=== PATIENT | female | born 1935 | race Caucasian/White ===

== ENCOUNTER → 2016-09-14 | Outpatient (CLI) | payer BC ==
[~2016-09-14] MED LIST: ASPEC81 PO; CLTP PO; CYAN10005 PO; LEVO-217 PO; LISI10TA PO; MULT-506 PO; OMEG10007 PO; SIMV20TA2 PO; TRVOPS OP
[2016-09-14 13:10] LABS: BASO % 1.1 %; BASO ABS # 0.05 K/uL (0-0.2); COMPLETE YES; EOS % 5.7 %; HEMATOCRIT 37.5 % (37-47); IG% 0.2 %; LYMPH % 27.9 %; LYMPH ABS # 1.27 K/uL (1.2-3.4); MEAN CELL VOLUME 91.5 fL (80-100); MEAN CORPUSCULAR HEMOGLOBIN 30.2 pg (25-34); MEAN CORPUSCULAR HGB CONC 33.1 g/dl (32-36); MEAN PLATELET VOLUME 9.8 fL (7.4-10.4); MONO % 11.2 %; NEUT % 53.9 %; PLATELET COUNT 174 K/uL (130-400); WHITE BLOOD COUNT 4.55 K/uL (4.8-10.8)
[2016-09-14 13:39] LABS: ALT/SGPT 19 U/L (12-78); AST/SGOT 13 U/L (15-37); BLOOD UREA NITROGEN 22 mg/dl (7-18); BUN/CREATININE RATIO 23.7 (10-20); CALCIUM 8.9 mg/dl (8.5-10.1); CARBON DIOXIDE 25 mmol/L (21-32); CHLORIDE 106 mmol/L (98-107); CREATININE 0.92 mg/dl (0.60-1.20); GLUCOSE 116 mg/dl (70-99); POTASSIUM 4.1 mmol/L (3.5-5.1); SODIUM 142 mmol/L (136-145)
[2016-09-14 13:50] LABS: CHOLESTEROL 179 mg/dl (0-200); CHOLESTEROL/HDL RATIO 2.3; HDL CHOLESTEROL 77 mg/dl; LDL CHOLESTEROL CALCULATED 80 mg/dl; TRIGLYCERIDES 109 mg/dl (0-150); VERY LOW DENSITY LIPOPROT CALC 22 mg/dl
== END | disposition home or self-care (01) ==
LOC: C.LABMFLN 07:22
PROVIDERS: ATTEND Family Medicine
DX: E78.5 Hyperlipidemia, unspecified (principal); I10 Essential (primary) hypertension; E03.9 Hypothyroidism, unspecified; E53.8 Deficiency of other specified B group vitamins

== ENCOUNTER → 2016-10-27 | Outpatient (CLI) | payer BC ==
[~2016-10-27] MED LIST changes: +PERFLUTREN LIPID MICROSPHERE (DEFINITY) IV ONE
--- NOTE | 2016-10-27 10:31 | DIAGNOSTIC IMAGING REPORT ---
CHEST 2 VIEWS ROUTINE CLINICAL HISTORY: R06.09 Dyspnea on [id number] dyspnea COMPARISON STUDY: No previous studies for comparison. FINDINGS: The bones soft tissues and hemidiaphragms are normal. The cardiomediastinal silhouette is normal. The lungs are clear. The pulmonary vasculature is normal. IMPRESSION: Negative chest. Electronically signed by: Heriberto Piña M.D. 10/27/2016 10:29 AM Dictated Date/Time: 10/27/2016 10:29 AM
--- NOTE | 2016-10-27 12:21 | EXERCISE STRESS ECHO ---
*NOTICE TO RECEIVING CONSTITUTION PARTY AGENCY This information is strictly Confidential and protected under [place] law. [place] law prohibits you from making any further disclosure of this information unless further disclosure is expressly permitted by the written consent of the person to whom it pertains or is authorized by law. A general authorization for the release of medical or other information is not sufficient for this purpose. Hospital accepts no responsibility if the information is made available to any other person, INCLUDING THE PATIENT. Interpretation Summary * Name: TERENCE LEGGETT Study Date: 10/27/2016 10:47 AM BP: 151/78 mmHg * Patient Location: [facility] HR: 87 * : 1935 (M/d/yyy) Gender: Female Height: 62 in * Age: 81 yrs Ethnicity: [place] Weight: 192 lb * Ordering Physician: Tyler Saldivar * Referring Physician: Tyler Saldivar * Performed By: Janine Magallon RDCS * * Reason For Study: [place] * BSA: 1.9 m2 * History: [place] * -- Conclusions -- * There is borderline concentric left ventricular hypertrophy. * Left ventricular systolic function is normal. * Grade I diastolic dysfunction, (abnormal relaxation pattern). * Right ventricular systolic pressure is elevated at 30-40mmHg. * Extremely poor exercise tolerance * Cannot exclude lateral ischemia at the workload achieved. * Consider additional testing (ie pharmacologic) testing if further evaluation is required. Procedure Details * A contrast injection of Definity was performed to improve assessment of LV function. * Contrast was injected into an intravenous site in the left arm. * One vial of Definity ultrasound contrast was diluted in normal saline to a total volume of 10 ml. A total of '4' ml of solution was administered during imaging. * Lot # [id number] of Definity utilized for procedure. * Expiration date SEP 03. * The attending nurse who injected the contrast agent was CRYSTAL PÉREZ RN. Left Ventricular Findings with Stress * Extremely poor exercise tolerance Cannot exclude lateral ischemia at the workload achieved. Consider additional testing (ie pharmacologic) testing if further evaluation is required. Left Ventricle * The left ventricle is normal in size. * There is borderline concentric left ventricular hypertrophy. * Ejection Fraction = 60-65%. * Left ventricular systolic function is normal. * Grade I diastolic dysfunction, (abnormal relaxation pattern). * The left ventricular wall motion is normal at rest. Right Ventricle * The right ventricle is normal in size and function. Atria * The left atrial size is normal. * Right atrial size is normal. Mitral Valve * The mitral valve anatomy is normal. * Significant mitral regurgitation is absent. Tricuspid Valve * The tricuspid valve is not well visualized, but is grossly normal. * There is mild tricuspid regurgitation. * Right ventricular systolic pressure is elevated at 30-40mmHg. Aortic Valve * The aortic valve is normal in structure and function. * No hemodynamically significant valvular aortic stenosis. * There is no significant aortic regurgitation. Pericardium * There is no pericardial effusion. Stress Parameters * The stress portion of this study was personally supervised by the undersigned interpreting physician. * Rest heart rate was '87' BPM. * Rest blood pressure was '151/78' * Maximum heart rate achieved was 155 bpm. * Maximum heart rate was 111 % of maximum age-predicted heart rate. * Maximum blood pressure was '188/69' * Total exercise time was '1:03' * Maximum exercise MET level achieved was '3.30' METS * Maximum treadmill speed was '1.70' miles per hour. * Maximum treadmill elevation was '10.00'% grade. * Exercise was terminated due to 'ACHIEVING TARGET HR, FATIGUE' Left Ventricular Findings with Stress * Patient was only able to exercise for one minute using a standard Junaid protocol. Exercise stopped due to dyspnea and fatigue She did acheive target heart rate Baseline EKG was normal withotu ST segement changes Baseline echocardiogram was normal The lateral wall did not seem to augment as well as the other segments with exercise Occasional PVCs and PACS were seen No chest pain Reed treadmill score: 1 (moderate risk) MMode 2D Measurements and Calculations IVSd 1.2 cm IVSs 1.4 cm LVIDd 4.0 cm LVIDs 2.8 cm LVPWd 1.1 cm LVPWs 1.5 cm IVS/LVPW 1.1 FS 29.9 % EDV(Teich) 69.3 ml ESV(Teich) 29.3 ml EF(Teich) 57.7 % EDV(cubed) 63.2 ml ESV(cubed) 21.7 ml EF(cubed) 65.6 % % IVS thick 17.4 % % LVPW thick 33.8 % LV mass(C)d 154.5 grams LV mass(C)dI 82.2 grams/m\S\2 LV mass(C)s 134.3 grams LV mass(C)sI 71.5 grams/m\S\2 SV(Teich) 40.0 ml SI(Teich) 21.3 ml/m\S\2 SV(cubed) 41.5 ml SI(cubed) 22.1 ml/m\S\2 LVAd ap4 28.5 cm\S\2 LVLd ap4 7.9 cm EDV(MOD-sp4) 84.6 ml EDV(sp4-el) 87.5 ml LVAs ap4 16.0 cm\S\2 LVLs ap4 6.3 cm ESV(MOD-sp4) 33.7 ml ESV(sp4-el) 34.2 ml EF(MOD-sp4) 60.2 % EF(sp4-el) 60.9 % LVAd ap2 33.0 cm\S\2 LVLd ap2 8.2 cm EDV(MOD-sp2) 108.4 ml EDV(sp2-el) 112.6 ml LVAs ap2 17.5 cm\S\2 LVLs ap2 6.9 cm ESV(MOD-sp2) 37.6 ml ESV(sp2-el) 37.6 ml EF(MOD-sp2) 65.3 % EF(sp2-el) 66.6 % LVLd %diff 4.1 % EDV(MOD-bp) 99.6 ml LVLs %diff 8.1 % ESV(MOD-bp) 37.3 ml EF(MOD-bp) 62.5 % SV(MOD-sp4) 51.0 ml SI(MOD-sp4) 27.1 ml/m\S\2 SV(MOD-sp2) 70.8 ml SI(MOD-sp2) 37.7 ml/m\S\2 SV(MOD-bp) 62.2 ml SI(MOD-bp) 33.1 ml/m\S\2 SV(sp4-el) 53.2 ml SI(sp4-el) 28.3 ml/m\S\2 SV(sp2-el) 75.0 ml SI(sp2-el) 39.9 ml/m\S\2 Doppler Measurements and Calculations MV E max thu 150.4 cm/sec MV A max thu 151.9 cm/sec MV E/A 0.99 MV dec time 0.11 sec Ao V2 max 141.6 cm/sec Ao max PG 8.0 mmHg Ao max PG (full) 3.7 mmHg LV V1 max PG 4.3 mmHg LV V1 max 104.2 cm/sec TR max thu 242.5 cm/sec
== END ==
LOC: C.CPL 10:13
PROVIDERS: ATTEND Family Medicine
DX: R06.09 Other forms of dyspnea (principal)

== ENCOUNTER → 2016-12-30 | Outpatient (CLI) | payer BC ==
[~2016-12-30] MED LIST changes: +AMINOPHYLLINE 25 MG/ML 20ML VIAL IV ONE; -PERFLUTREN LIPID MICROSPHERE (DEFINITY) IV ONE; +REGADENOSON 0.4 MG/5 ML SYR ONE
--- NOTE | 2016-12-30 21:11 | MYOCARDIAL PERFUSION SCAN ---
TIME OF DICTATION: 1913. ORDERING CLINICIAN: Maegan Hung PA-C. PRIMARY CARE PHYSICIAN: Dr. Tyler Saldivar. PROCEDURE: 1. Myocardial perfusion study performed in multiple views/images. 2. Lexiscan pharmacologic stress ECG. DATE OF PROCEDURE: 12/30/2016. CONSENT: Informed written consent was obtained. INDICATIONS 1. Dyspnea with exertion. 2. Hypertension. PROCEDURAL DETAILS: For the stress portion of the study, Lexiscan 0.4 mg was intravenously administered over 10 seconds, followed by saline flush. This was followed by 31.5 mCi of technetium-99m Cardiolite injected intravenously at 1320 on 12/30/2016. Thirty minutes following the injection, imaging of the heart was performed in multiple projections. For the rest portion of the study, 10 mCi of technetium-99m Cardiolite was injected intravenously at 11:40 a.m. on the same day. One hour following the injection, imaging of the heart was performed in the same projections. LEXISCAN STRESS ECG: Baseline ECG demonstrated sinus rhythm with PVCs at 73 beats per minute. Lexiscan ECG demonstrated no significant ST changes. PACs and PVCs were noted. No arrhythmia. No significant pause. No chest pain reported. Maximum heart rate was 111 beats per minute, representing 79% maximum predicted heart rate. Resting blood pressure was 159/82 mmHg. Maximum blood pressure was 163/78 mmHg. FINDINGS: Rotating raw imaging demonstrated no significant motion artifact. There was no significant lung uptake. Heart size appeared normal. Myocardial perfusion was normal without significant fixed or reversible defect to suggest infarct or ischemia. Wall motion was normal. Ejection fraction 70%. No significant transient ischemic dilation. IMPRESSION: 1. Normal myocardial perfusion study. 2. Normal left ventricular systolic function. EF 70%. 3. Normal wall motion. 4. No arrhythmia. 5. No chest pain reported. 6. Nondiagnostic Lexiscan ECG.
--- NOTE | 2017-01-05 07:22 | CODING QUERY MEDICAL NECESSITY ---
SUPPORTING DIAGNOSIS NEEDED Dr. Mariano, A supporting diagnosis is required for the test/procedure performed on this patient in order for us to be reimbursed by the patient's insurance. Please provide a supporting diagnosis for the following test/procedure listed below next to the test name along with your signature. *If there is no additional diagnosis for this patient that would support the following test/procedure please document that below next to the test/procedure. Test(s)/Procedure(s) that require a supporting diagnosis: * ([id number]) MYOCARDIAL PERF IMG (TC) SD DIAGNOSIS: DATE OF SERVICE: 12/30/16 Provider Signature: Date: Thank you [facility] Information Management Once completed, please kindly fax back to [phone] For questions please call [phone]
== END | disposition home or self-care (01) ==
LOC: C.NUCL 11:15
PROVIDERS: ATTEND Internal Medicine Cardiovascular Disease
DX: I10 Essential (primary) hypertension (principal); R06.09 Other forms of dyspnea; E78.5 Hyperlipidemia, unspecified

== ENCOUNTER → 2017-03-21 | Outpatient (CLI) | payer BC ==
[~2017-03-21] MED LIST changes: -AMINOPHYLLINE 25 MG/ML 20ML VIAL IV ONE; -REGADENOSON 0.4 MG/5 ML SYR ONE
[2017-03-21 12:44] LABS: BASO ABS # 0.05 K/uL (0-0.2); COMPLETE YES; EOS % 4.3 %; HEMATOCRIT 36.7 % (37-47); IG% 0.2 %; LYMPH % 24.9 %; LYMPH ABS # 1.28 K/uL (1.2-3.4); MEAN CELL VOLUME 91.5 fL (80-100); MEAN CORPUSCULAR HEMOGLOBIN 30.2 pg (25-34); MEAN PLATELET VOLUME 9.6 fL (7.4-10.4); MONO % 11.7 %; NEUT % 57.9 %; PLATELET COUNT 190 K/uL (130-400); RED BLOOD COUNT 4.01 M/uL (4.2-5.4); WHITE BLOOD COUNT 5.14 K/uL (4.8-10.8)
[2017-03-21 13:55] LABS: ALT/SGPT 18 U/L (12-78); AST/SGOT 12 U/L (15-37); BLOOD UREA NITROGEN 25 mg/dl (7-18); BUN/CREATININE RATIO 30.9 (10-20); CALCIUM 8.9 mg/dl (8.5-10.1); CARBON DIOXIDE 26 mmol/L (21-32); CHLORIDE 110 mmol/L (98-107); CREATININE 0.82 mg/dl (0.60-1.20); GLUCOSE 119 mg/dl (70-99); POTASSIUM 4.1 mmol/L (3.5-5.1); SODIUM 141 mmol/L (136-145)
== END | disposition home or self-care (01) ==
LOC: C.LABMFLN 08:44
PROVIDERS: ATTEND Family Medicine
DX: E78.5 Hyperlipidemia, unspecified (principal); I10 Essential (primary) hypertension; E03.9 Hypothyroidism, unspecified; E53.8 Deficiency of other specified B group vitamins

== ENCOUNTER → 2017-09-18 | Outpatient (CLI) | payer BC ==
[2017-09-18 12:39] LABS: BASO % 1.1 %; BASO ABS # 0.05 K/uL (0-0.2); EOS % 5.5 %; EOS ABS # 0.25 K/uL (0-0.5); HEMATOCRIT 39.5 % (37-47); HEMOGLOBIN 12.8 g/dL (12.0-16.0); LYMPH % 25.3 %; LYMPH ABS # 1.15 K/uL (1.2-3.4); MEAN CELL VOLUME 92.5 fL (80-100); MEAN CORPUSCULAR HGB CONC 32.4 g/dl (32-36); MEAN PLATELET VOLUME 9.5 fL (7.4-10.4); MONO % 11.2 %; MONO ABS # 0.51 K/uL (0.11-0.59); NEUT % 56.9 %; NEUT ABS # 2.59 K/uL (1.4-6.5); PLATELET COUNT 179 K/uL (130-400); RED CELL DISTRIBUTION WIDTH CV 13.3 % (11.5-14.5); RED CELL DISTRIBUTION WIDTH SD 44.4 fL (36.4-46.3); WHITE BLOOD COUNT 4.55 K/uL (4.8-10.8)
[2017-09-18 14:42] LABS: ALBUMIN 3.7 gm/dl (3.4-5.0); ALT/SGPT 20 U/L (12-78); AST/SGOT 14 U/L (15-37); BLOOD UREA NITROGEN 19 mg/dl (7-18); CALCIUM 8.9 mg/dl (8.5-10.1); CARBON DIOXIDE 29 mmol/L (21-32); CREATININE 0.86 mg/dl (0.60-1.20); GLUCOSE 114 mg/dl (70-99); POTASSIUM 4.2 mmol/L (3.5-5.1); SODIUM 139 mmol/L (136-145)
[2017-09-18 14:53] LABS: ALKALINE PHOSPHATASE 42 U/L (45-117); CHOLESTEROL 175 mg/dl (0-200); LDL CHOLESTEROL CALCULATED 75 mg/dl; TOTAL PROTEIN 7.2 gm/dl (6.4-8.2)
== END | disposition home or self-care (01) ==
LOC: C.LABMFLN 08:15
PROVIDERS: ATTEND Family Medicine
DX: E78.5 Hyperlipidemia, unspecified (principal); I10 Essential (primary) hypertension; E03.9 Hypothyroidism, unspecified; D51.9 Vitamin B12 deficiency anemia, unspecified; R73.01 Impaired fasting glucose